=== PATIENT | male | born 1995 | race Caucasian/White ===

== ENCOUNTER 2024-06-06 20:50 | Emergency (ER) | payer OTHER, MEDICARE, MEDICAID, SELFPAY ==
[2024-06-06 20:56] VITALS: BP 128/70; PULSE 68; O2SAT 98
[2024-06-06 21:04] VITALS: BP 133/56; PULSE 79; RESP 16; TEMP 35.6; O2SAT 97; BMI 21.7
--- OUTSIDE RECORDS SUMMARY | 2024-06-06 22:41 | XMS_ITS ---
Author Organization [facility] Address [address] [place] [address] Care Team Providers Care Camera Repairer Name Role Phone KYLIE BONILLA Primary Care Provider [phone] Herbert ADAMS, Kylie Unavailable Unavail able REASON FOR VISIT [facility] VISIT Encounters Encounter Location Date Provider Diagnosis [facility] OR Inpatient [address] [place] [id number] 05/09/2023 KYLIE BONILLA Plan Of Treatment No Information Progress Notes * Jaren ARIAS MDOB: 6 (29 yo M)Acc No.[id number]:05/09/2023 Patient:?Jaren ARAIS Provider:?Kylie Bonilla MD :1995???Age:28 Y???Sex:Male Milind e:05/09/2023 Address:[address], [facility] Subjective: * Chief Complaints: * ???1. [facility] VISIT. * Medical History:? Objective: * Vitals:? Assessment: Plan: * Treatment: * Images: Billing Information: * Visit Code:? * Procedure Codes:? * Electronic signature of CHRISTINA BONILLA MD on 06/06/2024 at 10:41 PM EDT Sign off status: Pending * Provider:?Kylie Bonilla MD Da te:?05/09/2023 Generated for Printi ng/Faxing/eTransmitting on:?06/06/2024 10:41 PM EDT
--- OUTSIDE RECORDS SUMMARY | 2024-06-06 22:41 | XMS_ITS ---
Author Organization [facility] Address [address] [place] [address] Care Team Providers Care Nursing Home Manager Name Role Phone KYLIE BONILLA Primary Care Provider Herbert ADAMS, Kylie Unavailable Unavail able REASON FOR VISIT [facility] VISIT Encounters Encounter Location Date Provider Diagnosis [facility] OR Inpatient [address] [place] [phone] 05/10/2023 KYLIE BONILLA Plan Of Treatment No Information Progress Notes * Jaren ARIAS MDOB: 6 (29 yo M)Acc No.[id number]:05/10/2023 Patient:?Jaren ARIAS Provider:?Kylie Bonilla MD :1995???Age:28 Y???Sex:Male Milind e:05/10/2023 Address:[address], [facility] Subjective: * Chief Complaints: * ???1. [facility] VISIT. * Medical History:? Objective: * Vitals:? Assessment: Plan: * Treatment: * Images: Billing Information: * Visit Code:? * Procedure Codes:? * Electronic signature of CHRISTINA BONILLA MD on 06/06/2024 at 10:41 PM EDT Sign off status: Pending * Provider:?Kylie Bonilla MD Da te:?05/10/2023 Generated for Printi ng/Faxing/eTransmitting on:?06/06/2024 10:41 PM EDT
--- OUTSIDE RECORDS SUMMARY | 2024-06-06 22:41 | XMS_ITS | Patient Health Record ---
Author Organization [facility] Address [address] [place] [address] Care Team Providers Care Director Of Collections And Archives Name Role Phone KYLIE BONILLA Primary Care Provider Kylie Bonilla MD Unavailable Unavail able Reason For Referral No Information Plan Of Treatment No Information Insurance Providers Payer Name Payer Address Payer Phone Subscriber Number Group Number Insured Name Patient Relationship to Insured Coverage Start Date Coverage End Date MEDICARE [address] [place] [phone] [id number] Jaren Herrera Self - patient is the insured [facility] [address] [place] [address] [id number] [facility] Jaren Herrera Self - patient is the insured
--- OUTSIDE RECORDS SUMMARY | 2024-06-06 22:42 | XMS_ITS | Patient Health Record ---
Author Organization [facility] Address [address] [place] [address] Care Team Providers Care Clay Machine Operator Name Role Phone Octavio ADAMS, Antea Primary Care Provider HILARIA Blount Unavailable [phone] Emergency, Room Unavailable Unavailable FLORENCE LEONARD Unavailable [phone] ALLERGIES Allergen (clinical drug ingredient) Drug/Non Drug Allergy documented on EMR Reaction Allergy Type Onset Date Status tramadol Tramadol HCl nausea and vomiting Drug Allergy Active REASON FOR REFERRAL No Information MEDICATIONS Medication SIG (Take, Route, Fr equency, Duration) Notes Start Date End Date Status Spironolactone Activ e Nadolol Active Gabapentin Active Ibuprofen 600 MG 1 tablet with food o r milk as needed Orally Three times a day Active azaTHIOprine Active SOCIAL HISTORY Tobacco Use: Social History Observation Description Date Details (start date - stop date) Current Smoker NA - NA Sex Assigned At : Social History Observation Description Sex Assigned At Unknown Tobacco Use/Smoking Question Answer Notes Current Smoking Status: current smoker Alcohol Screen (Audit-C) Question Answer Notes Did you have a drink containing alcohol in the p ast year? Yes Points 0 Interpretation Negative PROBLEMS Problem Type ICD Code Onset Dates Problem Status W/U Status Risk SNOMED Code Notes Problem Right elbow pain (M25.521) Active confirmed Arthralgia of the upper arm (510715262) Problem Left hand pain (M79.642) Active confirmed Pain of left hand (9718392921731 03) Problem Closed nondisplaced fracture of proximal phalanx of left thumb, initial encounter (S62.515A) Active confirmed 774882671 Problem Closed displaced fracture of calcaneus, unspecified laterality, unspecified portion of calcaneus, initial encounter (S92.009A) Active confirmed 29258374 Encounters Encounter Location Date Provider Diagnosis [facility] [address] [place] [phone] 01/11/2024 FLORENCE LEONARD Closed displaced fracture of calcaneus, unspecified laterality, unspecified portion of calcaneus, initial encounter S92.009A ASSESSMENTS Encounter Date Diagnosis Assessment Notes Treatment Notes Treatment Clinical Notes 01/11/2024 Closed displaced fracture of calcaneus, unspecified laterality, unspecified portion of calcaneus, initial encounter (ICD-10 - S92.009A) PLAN OF TREATMENT No Information Insurance Providers Payer Name Payer Address Payer Phone Subscriber Number Group Number Insured Name Patient Relationship to Insured Coverage Start Date Coverage End Date Medicare [address] [place] [address] [id number] Soham Herrera Self - patient is the insured Medicaid CrossOver [address] [place] [address] [id number] Soham Herrera Self - patient is the insured MEDICAL (GENERAL) HISTORY Medical History History ICD Code liver disease anxiety hepatitis ulcers
--- OUTSIDE RECORDS SUMMARY | 2024-06-06 22:42 | XMS_ITS ---
Author Organization [facility] Address [address] [place] [address] Care Team Providers Care Spoon Maker Name Role Phone Octavio ADAMS, Antea Primary Care Provider HILARIA Blount Unavailable [phone] Emergency, Room Unavailable Unavailable FAIZAN LEONARD Unavailable [phone] ALLERGIES Allergen (clinical drug ingredient) Drug/Non Drug Allergy documented on EMR Reaction Allergy Type Onset Date Status tramadol Tramadol HCl nausea and vomiting Drug Allergy Active RESULTS Component Value Reference Range Notes XR Elbow 2 v RT Reviewed date:12/12/2022 09:41:35 AM Interpretation: Performing Lab: Notes/Report: REASON FOR VISIT Right Elbow Fracture MEDICATIONS Medication SIG (Take, Route, Fr equency, Duration) Notes Start Date End Date Status Ibuprofen 600 MG 1 tablet with food o r milk as needed Orally Three times a day Active azaTHIOprine Active Spironolactone Activ e Nadolol Active Gabapentin Active SOCIAL HISTORY Tobacco Use: Social History [...] ast year? Yes Points 0 Interpretation Negative VITAL SIGNS Height 71 in 12/11/2022 Weight 170 lbs 12/11/2022 BMI 23.71 kg/m2 12/11/2022 Encounters Encounter Location Date Provider Diagnosis [facility] [address] [place] [phone] 12/11/2022 FAIZAN LEONARD Right elbow pain M25.521 ASSESSMENTS Encounter Date Diagnosis Assessment Notes Treatment Notes Treatment Clinical Notes 12/11/2022 Right elbow pain (ICD-10 - M25.521) Diagnosis, imaging, and treatment options were discussed with the patient. His old chart notes and imaging were personally reviewed today as well. Given the patient's right elbow symptoms and physical examination findings, I am fairly confident that conservative management will eventually resolve his right elbow symptoms. I recommend the followin. I will provide range of motion exercises to his email that he may perform independently. 2. I instructed him to avoid any heavy lifting, pushing, or pulling with his right upper extremity for the time being, but he may slowly reintroduce activities as his symptoms allow.3. The patient will follow up on an as-needed basis PLAN OF TREATMENT Treatment Notes Assessment Notes Right elbow pain Diagnosis, imaging, and treatment options were discussed with the patient. His old chart notes and imaging were personally reviewed today as well. Given the patient's right elbow symptoms and physical examination findings, I am fairly confident that conservative management will eventually resolve his right elbow symptoms. I recommend the followin. I will provide range of motion exercises to his email that he may perform independently. 2. I instructed him to avoid any heavy lifting, pushing, or pulling with his right upper extremity for the time being, but he may slowly reintroduce activities as his symptoms allow.3. The patient will follow up on an as-needed basis Next Appt Details Follow Up: prn, Reason: Progress Notes * Jaren ARIAS MDOB: 6 (27 yo M)Acc No.[id number]:12/11/2022 Patient:??Jaren Arias Provider:??WILMAR Gonzales :1995?Age:27 Y?Sex:Ma le Date:12/11/2022 Address:[address], [id number] Pcp:Augustin Cunningham MD Subjective: * Chief Complaints: * ?Right Elbow Fracture * HPI: ?Constitutional:? Mr. Arias is a 27-year-old male who presents today for an initial evaluation of his right elbow injury. The emergency room report states that he tripped in 11/2022 and fell onto his right upper extremity. The patient was ambulating into building a river in [place], [place] when he tripped and struck his right upper extremity on the sidewalk. He experienced significant pain in his right elbow following the incident, particularly while driving his manual vehicle home. He was treated at the hospital on 11/15/2022 and x-rays were obtained. He was placed in a sling at that time and wore it for approximately 1 week. Today, the patient describes pain in his right elbow with use, lifting, extension, and applying pressure to his right upper extremity. The patient is unable to perform a push-up currently or lay on his right upper extremity in bed. He also describes tightness in his right elbow with flexion. He has been performing range of motion of his right elbow as his pain allows. 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 He has been removed secondary to the patient continuing to drink and he is not a good candidate for a liver transplant. ?The patient is disabled. He drives a manual vehicle. ?Previous studies for this problem:?Plain x-rays:??X-rays of the right elbow were obtained on 11/15/2022 and they were personally reviewed. They demonstrate a nondisplaced fracture through the radial head. Otherwise, they are unremarkable.?? * ROS:?General/Constitutional: Change in appetite denies. Chills denies. Fever denies. Ophthalmologic: Blurred vision denies. Discharge denies. Eye Pain denies. ENT: Decreased hearing denies. Sore throat denies. Swollen glands denies. Endocrine: Cold intolerance denies. Excessive thirst denies. Heat intolerance denies. Weight loss denies. Respiratory: Cough denies. Shortness of breath at rest denies. Shortness of breath with exertion denies. Wheezing denies. Cardiovascular: Chest pain at rest denies. Chest pain with exertion denies. Irregular heartbeat denies. Shortness of breath denies. Gastrointestinal: Abdominal pain denies. Diarrhea denies. Nausea denies. Vomiting denies. Genitourinary: Blood in urine denies. Difficulty urinating denies. Frequent urination denies. Skin: Dry skin denies. Itching denies. Rash denies. Neurologic: Dizziness denies. Fainting denies. Headache denies. * Medical History:?? * Surgical History:??Denies Adan loya Surgical History * Hospitalization/Major Diagno stic Procedure:??Denies Past Hospitalization * Family History:??Non-Contrib utory.?? * Social History:?Tobacco Use:?Tobacco Use/Smoking?Current Smoking Status:??current smoker ?Drugs/Alcohol:?Drugs?Have you used drugs other than those for medical reasons in the past 12 months???No ?Alcohol Screen (Audit-C)?Did you have a drink containing alcohol in the past year???Yes ?Points??0 ?Interpretation??Negative ?Caffeine?Intake:??1-2 cups per day ?Do you smoke marijuana?: Denies. ?Do you drink alcohol?: Yes. * Medications:??TakingIbuprofe n 600 MG Tablet 1 tablet with food or milk as needed Orally Three times a dayazaTHIOprine Spironolactone Nadolol Gabapentin Medication List reviewed and reconciled with the patientTaking Ibuprofen 600 MG Tablet 1 tablet with food or milk as needed Orally Three times a dayTaking azaTHIOprine Taking Spironolactone Taking Nadolol Taking Gabapentin Medication List reviewed and reconciled with the patient * Allergies:??Tramadol HCl: na usea and vomitingno[Allergies Verified] Objective: * Vitals:??Ht: 71 in, Wt:170 l bs, BMI:23.71 Index. * Examination: ?General Examination: ?GENERAL APPEARANCE:??in no acute distress.?ORIENTATION: alert and oriented x 3 ?MOOD: cooperative. ?Right elbow: ?INSPECTION: within normal limits. ?PALPATION: mild pain to palpation over the radial head. ?RANGE OF MOTION: full range of motion with slight pain on extremes. ?STABILITY: no instability. ?STRENGTH: appropriate fourth mate. ?NEUROVASCULAR: intact. ?VASCULAR: appropriate pulses. ?No other special testing was performed today. ? Assessment: * Assessment: 1.??Right elbow pain - M25.5 21?? Stable, healing nondisplaced distal radius fracture of the right elbow. Plan: * Treatment: Notes: Diagnosis, imaging, and treatment options were discussed with the patient. His old chart notes and imaging were personally reviewed today as well. Given the patient's right elbow symptoms and physical examination findings, I am fairly confident that conservative management will eventually resolve his right elbow symptoms. I recommend the followin. I will provide range of motion exercises to his email that he may perform independently. 2. I instructed him to avoid any heavy lifting, pushing, or pulling with his right upper extremity for the time being, but he may slowly reintroduce activities as his symptoms allow. 3. The patient will follow up on an as-needed basis.? * Procedure Codes:??78136 Rad Exam Elbow (2 views) * Preventive Medicine:?RENNY Screening:?FALLS: Screening for Future Fall Risk?Have you had two or more falls in the past year???No ?Have you had any falls with injury in the past year???No ?Plan of Care:??Documented ?Assessment:??Performed * Follow Up:??prn * * Sign off status: Completed true * Provider:??Faizan Leonard, [facility] Date :??12/11/2022 History and Physical Notes * HPI (History of Present Illness) Category Sub-Category Detail Notes Previous studies for this problem Plain x-rays: X-rays of the right elbow we re obtained on 11/15/2022 and they were personally reviewed. They demonstrate a nondisplaced fracture through the radial head. Otherwise, they are unremarkable Examination Category Sub-Category Detail Notes General Examination GENERAL APPEARANCE: in no ac quan distress
--- OUTSIDE RECORDS SUMMARY | 2024-06-06 22:42 | XMS_ITS ---
Author Organization [facility] Address [address] [place] [address] Care Team Providers Care Bmx Rider Name Role Phone Octavio ADAMS, Antea Primary Care Provider HILARIA Blount Unavailable [phone] Emergency, Room Unavailable Unavailable FLORENCE LEONARD Unavailable [phone] REASON FOR VISIT pain meds MEDICATIONS Medication SIG (Take, Route, Fr equency, Duration) Notes Start Date End Date Status Nadolol Active Gabapentin Active oxyCODONE HCl 5 MG 1 tablet as needed O rally every 6 hrs for 3 days 01/11/2024 2024 Active Ibuprofen 600 MG 1 tablet with food o r milk as needed Orally Three times a day Active azaTHIOprine Active Spironolactone Activ e PROBLEMS Problem Type ICD Code Onset Dates Problem Status W/U Status Risk SNOMED Code Notes Problem Closed displaced fracture of calcaneus, unspecified laterality, unspecified portion of calcaneus, initial encounter (S92.009A) Active confirmed [id number] Encounters Encounter Location Date Provider Diagnosis [facility] [address] [place] [address] 01/11/2024 FLORENCE LEONARD Closed displaced fracture of calcaneus, unspecified laterality, unspecified portion of calcaneus, initial encounter S92.009A ASSESSMENTS Encounter Date Diagnosis Assessment Notes Treatment Notes Treatment Clinical Notes 01/11/2024 Closed displaced fracture of calcaneus, unspecified laterality, unspecified portion of calcaneus, initial encounter (ICD-10 - S92.009A) PLAN OF TREATMENT Medication Medication Name Sig Start Date Stop Date Notes oxyCODONE HCl 5 MG 1 tablet as needed O rally every 6 hrs for 3 days 01/11/2024 2024 Progress Notes * Jaren ARIAS MDOB: 6 (29 yo M)Acc No.[id number]:01/11/2024 Patient:??Jaren ARIAS :1995?Age:28 Y?Sex:Ramses hawk Address: [address], [place], [address] * Refills?? Start oxyCODONE HCl Tablet, 5 MG, Orally, 12 Tablet, 1 tablet as needed, every 6 hrs, 3 days, Refills=0 Subjective: * Chief Complaints: * ?Pain meds * Medical History:?? * Surgical History:?? * Hospitalization/Major Diagno stic Procedure:?? * Medications:??TakingIbuprofe n 600 MG Tablet 1 tablet with food or milk as needed Orally Three times a day azaTHIOprine Spironolactone Nadolol Gabapentin Taking Ibuprofen 600 MG Tablet 1 tablet with food or milk as needed Orally Three times a day Taking azaTHIOprine Taking Spironolactone Taking Nadolol Taking Gabapentin Objective: Assessment: * Assessment: 1.??Closed displaced fractur e of calcaneus, unspecified laterality, unspecified portion of calcaneus, initial encounter - S92.009A (Primary)?? Plan: * Treatment: * Procedure Codes:?? * true * Date:??
--- NOTE | 2024-06-06 23:23 | ED_ITS ---
HPI - Eye Problem General Chief complaint: Eye Problems Stated complaint: eye problems Time Seen by Provider: 06/06/24 22:40 Source: patient Mode of arrival: ambulatory Limitations: no limitations History of Present Illness ED Provider: jassi ARTEAGA Narrative: Patient has been [facility] complaining of bi lateral eye pain left more than right for last 2 days with discharge from the eyes patient's wear contact lenses supposed to wear for 1 month but wearing it for 45 days. Feels slight blurred vision no loss of vision no history of eye infection in the past Related Data Previous Rx's ?Medication ?Instructions ?Recorded ciprofloxacin HCl 0.3 % eye drops See Rx Instructions ophthalmic 06/07/24 (eye) .COMPLEX #5 mL ibuprofen 600 mg tablet 600 mg PO Q6H PRN fever or pain 06/07/24 #30 tabs ketotifen fumarate 0.025 % (0.035 1 drp ophthalmic (eye) BID PRN 06/07/24 %) eye drops pain #5 mL Allergies Allergy/AdvReac Type Severity Reaction Status Date / Time acetaminophen [From Tylenol] Allergy Unknown Verified 06/06/24 21:07 ketamine Allergy Unknown Verified 06/06/24 21:07 paroxetine [From Paxil] Allergy Unknown Verified 06/06/24 21:07 tramadol Allergy Unknown Verified 06/06/24 21:07 Review of Systems 2 Review of Systems: Yes all other systems are reviewed and are negative [facility] Social History Social History Advance Directives: No Advance Directives Information Provided: No Do you have a plan to hurt others: No Plan Physical Exam 2 Vital Signs: Vital Signs: Last Vital Signs Temp 98.2 F 06/07/24 00:00 Pulse 76 06/07/24 00:00 Resp 16 06/07/24 00:00 BP 117/63 06/07/24 00:00 Pulse Ox 96 06/07/24 00:00 O2 Del Method Room Air 06/07/24 00:00 BMI result Body Mass Index 21.7 Eyes: Eyes/upper lids images: 1. Bilateral eyes conjunctivae injected L>R with clear discharge superficial abrasion left cornea anterior chamber normal visual acuity apparently normal Medications Administered Discontinued Medications Generic Name Dose Route Start Last Admin Trade Name Freq PRN Reason Stop Dose Admin Fluorescein Sodium 1 strip 06/06/24 23:23 06/07/24 00:31 Fluorescein Sodium Strip EYE-BOTH 06/06/24 23:24 Not Given ONCE ONE Ketorolac Tromethamine 60 mg 06/07/24 01:03 06/07/24 01:08 Ketorolac Tromethamine 60 Mg/2 Ml Vial IM 06/07/24 01:04 60 mg ONCE ONE Administration Tetracaine HCl 3 drop 06/06/24 23:24 06/07/24 00:31 Tetracaine Hcl/Pf 0.5% Oph Camille 4 Ml Drops EYE-BOTH 06/06/24 23:25 Not Given ONCE ONE Tobramycin Sulfate 2 drop 06/06/24 23:23 06/07/24 00:31 Tobramycin Sulfate 0.3% Camille Op 5 Ml Btl EYE-BOTH 06/06/24 23:24 Not Given ONCE ONE Medical Decision Making Medical Decision Making MDM Narrative: Patient with contact lens induced conjunctivitis with superficial abrasion to the left cornea will prescribe Cipro eye drop and ketoprofen eyedrops for pain advised to follow with eye doctor if not better Discharge Plan Discharge Clinical Impression: Corneal abrasion, Bacterial conjunctivitis Patient Disposition: Xfer [facility] Transfer Details: Contact lens induced infection of the eyes with abrasion in the left cornea, antibiotic as prescribed do not use contact lenses until heals completely Instructions: Corneal Abrasion (ED), Conjunctivitis (ED) Additional Instructions: Use antibiotic eyedrops as prescribed Eyedrops for pain as prescribed Do not use contact lenses until completely healed Follow with ecommerce project manager if not better Use tobramycin eye drops instead as provided until you get the Cipro eyedrops Prescriptions: New ciprofloxacin HCl 0.3 % drops See Rx Instructions .ROUTE .COMPLEX Qty: 5 0RF Rx Instructions: put 1-2 drps in affected eye(s) every 2hr up to 8 times/day x2days; then 4 times/day x5days ketotifen fumarate 0.025 % (0.035 %) drops 1 drp ophthalmic (eye) BID PRN (Reason: pain) Qty: 5 0RF Rx Instructions: administer at least 8 hours apart ibuprofen 600 mg tablet 600 mg PO Q6H PRN (Reason: fever or pain) Qty: 30 0RF Print Language: Amharic
[2024-06-07] VITALS: BP 117/63; PULSE 76; RESP 16; TEMP 36.8; O2SAT 96
[2024-06-07] MEDS: Ketorolac Tromethamine 60 MG/2 ML VIAL IM (01:08)
[2024-06-07 02:24] VITALS: BP 117/63; PULSE 76; RESP 16; TEMP 36.8; O2SAT 96
== END 2024-06-07 02:23 ==
PROVIDERS: Emergency Provider Internal Medicine
DX: H18.822 Corneal disorder due to contact lens, left eye (principal); H10.9 Unspecified conjunctivitis
CPT/HCPCS: 96372; 99283; 99284; J1885